=== PATIENT | female | born 1980 | race Caucasian/White ===

== ENCOUNTER 2017-09-07 10:26 | Emergency (ER) | payer OTHER ==
[~2017-09-07] VITALS: Ht 160 cm; Wt 86.6 kg
[~2017-09-07 10:26] MED LIST: CLARITHROMYCIN500 M1 PO; COL250 PO; FLA500 PO; GABAPENTIN800 M1 PO; LAC PO; LEVAQUIN750 MG PO; MOT600 PO; NOR10T PO; NORCO1 TAB PO; PRILOSEC20 MG PO; TIZANIDINE HCL4 MG PO
[2017-09-07 11:33] VITALS: Ht 160 cm; Wt 86.6 kg
[2017-09-07 15:56] VITALS: BP 123/66
== END 2017-09-07 15:56 | disposition home or self-care (01) ==
LOC: ED 10:26
DX: N39.0 Urinary tract infection, site not specified (principal); K29.70 Gastritis, unspecified, without bleeding; Z88.0 Allergy status to penicillin
CPT/HCPCS: J0696; Q0162